=== PATIENT | female | born 1975 | race Caucasian/White ===

== ENCOUNTER 2017-05-19 11:27 | Observation (INO) | payer BC, OTHER ==
[2017-05-19 12:22] LABS: #Basophils 0.1 thou/uL (0.0-0.2); #Eosinphils 0.2 thou/uL (0.0-0.7); #Lymphocytes 2.2 thou/uL (1.20-3.40); #Monocytes 0.5 thou/uL (0.11-0.59); #Neutrophils 4.8 thou/uL (1.40-6.50); %Basophils 0.9 % (0.0-1.0); %Lymphocytes 28.1 % (21.0-51.0); %Monocytes 6.9 % (0.0-10.0); Mean Platelet Volume 9.3 fL (7.4-10.4); Red Blood Cell (RBC) Count 4.23 mill/uL (4.20-5.40); White Blood Cell (WBC) Count 7.8 thou/uL (4.8-10.8)
[2017-05-19 12:36] LABS: ALT (SGPT) 18 U/L (8-55); AST (SGOT) 21 U/L (5-34); Alkaline Phosphatase 60 U/L (40-150); Anion Gap 12 mmol/L (10-20); BUN (Urea Nitrogen) 16 mg/dL (7.0-18.7); Bilirubin, Total 1.1 mg/dL (0.2-1.2); CK (CPK) 77 U/L (29-168); Calc. Creatinine Clearance 0 mL/min (70-130); Calcium 10.3 mg/dL (7.8-10.44); Carbon Dioxide 24 mmol/L (22-29); Chloride 106 mmol/L (98-107); Estimated GFR-MDRD Greater than 90; Globulin 3.2 g/dL (2.4-3.5); Lipase 25 U/L (8-78); Protein, Total 7.6 g/dL (6.0-8.3)
[2017-05-19 12:37] LABS: Troponin I Less than 0.010 ng/mL (< 0.028)
--- NOTE | 2017-05-19 13:23 | RAD ---
RADIOGRAPH CHEST 1 VIEW: HISTORY: 41-year-old female with acute chest pain and dyspnea. FINDINGS: There are no air space densities, pulmonary edema, pneumothorax, or cardiomegaly. The lateral costo phrenic angles are sharp. IMPRESSION: No acute cardiopulmonary findings. norris [] POS: GABE
[2017-05-19 15:53] LABS: Troponin I Less than 0.010 ng/mL (< 0.028)
[2017-05-19 18:49] LABS: Troponin I 0.014 ng/mL (< 0.028)
[2017-05-19] MEDS ORDERED: Potassium Chloride 20 MEQ TAB PO SCH (19:00)
[2017-05-19] MEDS ORDERED: Ondansetron ODT 4 MG TAB PO PRN (19:34)
[2017-05-19] MEDS ORDERED: Ondansetron HCl/PF 4 MG/2 ML Vial IVP PRN (19:34)
[2017-05-19] MEDS ORDERED: Nitroglycerin 0.4 MG TAB (25 Tab Bottle) PO PRN (19:34)
[2017-05-19 19:37] VITALS: BMI 25.3
--- NOTE | 2017-05-19 20:04 | HP ---
DATE OF ADMISSION: 05/19/2017 PRIMARY CARE PHYSICIAN: Dr. Kapil Castro. CHIEF COMPLAINT: Chest discomfort. HISTORY OF PRESENT ILLNESS: The patient is a 41-year-old female with supraventricular tachycardia i n the past, presented to the hospital with chest discomfort. The chest discomfort started this morn ing when she was going to work. It lasted for 2-3 hours. It was substernal, radiating to her left arm. She felt lightheaded with some shortness of breath and nausea. She denies any palpitations, s yncope, heartburn or dyspepsia. No recent immobilization or travel reported. She denies any cough, shortness of breath or fever. In the emergency room, initial vital signs showed temperature 98.2, respirations 14, pulse of 57, bl ood pressure of 149/86 with O2 saturation of 97% on room air. Her initial EKG showed sinus bradycar gwendolyn without significant ST-T wave changes. She received aspirin in the emergency room. A chest x-r ay was negative for infiltrate or edema. PAST MEDICAL HISTORY: 1. Paroxysmal supraventricular tachycardia. The patient has seen Dr. Cisneros in the past. She a lso had an echocardiogram around 10-[address] Cisneros. No cardiac workup since then. 2. Hypertension. 3. Chronic hypokalemia. 4. Anxiety. 5. History of nephrolithiasis. 6. History of tobacco abuse. 7. Right thoracic outlet syndrome (due to extra rib). PAST SURGICAL HISTORY: 1. Soft palate repair. 2. Vaginal reconstruction from childbirth. 3. Cystoscopy with stent placement. ALLERGIES: The patient is allergic to PENICILLIN. CURRENT HOME MEDICATIONS: Losartan 100 mg daily. SOCIAL HISTORY: The patient is a former smoker, quit smoking earlier this year. Drinks alcohol rar catarino. She is and lives at home with her spouse. FAMILY HISTORY: Father with COPD. Mother with brain aneurysm and hypertension. REVIEW OF SYSTEMS: The following complete review of systems was negative, unless otherwise mentione d in the HPI or below: Constitutional: Weight loss or gain, ability to conduct usual activities. Skin: Rash, itching. Eyes: Double vision, pain. ENT/Mouth: Nose bleeding, neck stiffness, pain, tenderness. Cardiovascular: Palpitations, dyspnea on exertion, orthopnea. Respiratory: Shortness of breath, wheezing, cough, hemoptysis, fever or night sweats. Gastrointestinal: Poor appetite, abdominal pain, heartburn, nausea, vomiting, constipation, or diar ra. Genitourinary: Urgency, frequency, dysuria, nocturia. Musculoskeletal: Pain, swelling. Neurologic/Psychiatric: Anxiety, depression. Allergy/Immunologic: Skin rash, bleeding tendency. PHYSICAL EXAMINATION: VITAL SIGNS: As discussed above. GENERAL: A 41-year-old female, in no apparent distress. HEENT: Head is atraumatic, normocephalic. Sclerae are anicteric. Moist mucous membranes. No oral lesion. NECK: Supple, no JVD appreciated. No carotid bruit. LUNGS: Clear to auscultation bilaterally. No wheezing or rales. HEART: S1, S2 present, bradycardic. No rubs or gallops. S2 was loud. No murmurs appreciated. ABDOMEN: Soft, nontender, bowel sounds present. EXTREMITIES: No edema or calf tenderness. NEUROLOGIC: Grossly nonfocal, moves all four extremities. PSYCHIATRY: Alert, awake, oriented x3. SKIN: Warm and dry. LYMPH NODES: No palpable lymph nodes in the neck. PERIPHERAL VASCULAR: Radial pulses palpable bilaterally. MUSCULOSKELETAL: No joint swelling or tenderness. LABORATORY FINDINGS: 1. Potassium of 3.4. 2. Cardiac enzymes x3 have been negative. 3. BUN 16, creatinine 0.69. 4. EKG and chest x-ray by my review as discussed above. IMPRESSION: 1. Chest discomfort, rule out acute coronary syndrome. 2. Paroxysmal supraventricular tachycardia. The patient uses Valsalva maneuver. 3. Hypertension 4. Hypokalemia. 5. Anxiety. 6. Former smoker. 7. PENICILLIN allergy. 8. Asymptomatic cholelithiasis. PLAN: The patient will be monitored on the telemetry unit. Serial cardiac enzymes have been negati ve. We will resume losartan. We will keep her n.p.o. past midnight for stress test in a.m. We edvin l also get an echocardiogram as requested by her primary care physician. Base met in 1 week is meera mmended. Primary care physician advised to follow. Plan of care was discussed with the patient. She stated understanding.
[2017-05-19] MEDS: Acetaminophen 325 MG TAB PO PRN (20:24)
[2017-05-19] MEDS: Docusate 100 MG CAP PO SCH (20:24)
[2017-05-19] MEDS: Famotidine 20 MG TAB PO SCH (20:24)
[2017-05-20] MEDS: Acetaminophen 325 MG TAB PO PRN (13:10)
[2017-05-20] MEDS: Losartan Potassium 25 MG TAB PO SCH (13:14)
[2017-05-20] MEDS: Famotidine 20 MG TAB PO SCH (13:14)
[2017-05-20] MEDS: Aspirin 325 MG TAB PO SCH (13:14)
[2017-05-20] MEDS: Docusate 100 MG CAP PO SCH (13:14)
--- NOTE | 2017-05-20 15:19 | NM ---
NUCLEAR MEDICINE CARDIAC MYOCARDIAL PERFUSION SPECT EJECTION FRACTION STUDY WALL MOTION CINE: Date: 05/20/17 HISTORY: 41-year-old female with chest pain. TECHNIQUE: Number of days: 1 Rest study: Tc99m sestamibi (Cardiolite) dose: 11.0 mCi Exercise stress: treadmill. Stress study: Tc99m sestamibi (Cardiolite) dose: 29.0 mCi FINDINGS: CARDIAC (MYOCARDIAL PERFUSION) SPECT There is a subtle, small perfusion defect on the stress images, at the anteroseptal region, which is not present on the resting images. EJECTION FRACTION STUDY EF = 64% WALL MOTION CINE Normal wall motion and normal systolic wall thickening. IMPRESSION: Questionable small focus of reversible ischemia at the anteroseptal region. CODE T. JN R POS: [facility]
[2017-05-20] MEDS ORDERED: Communication Order-Pharmacy FS SCH (17:45)
[2017-05-20] MEDS ORDERED: Diazepam 5 MG TAB PO SCH (17:45)
--- NOTE | 2017-05-20 18:26 | PDOC.PN ---
- Subjective Encounter Start Date: 05/20/17 Encounter Start Time: 16:00 Patient seen and examined. No new complaints. No overnight events - Objective Resuscitation Status: Resuscitation Status FULL:Full Resuscitation MAR Reviewed: Yes Vital Signs & Weight: Vital Signs (12 hours) Temp Pulse Resp BP Pulse Ox 05/20/17 15:16 98.5 F 72 18 125/80 97 05/20/17 12:45 98.5 F 63 16 142/74 H 99 05/20/17 08:00 98.5 F 72 16 05/20/17 07:30 98.5 F 72 16 133/76 96 Weight Weight 147 lb 9.6 oz I&O: 05/19/17 05/20/17 05/21/17 06:59 06:59 06:59 Intake Total 300 Balance 300 Result Diagrams: 05/19/17 12:00 05/19/17 12:00 EKG Reviewed by me: Yes (Tele SR) Phys Exam - Physical Examination Constitutional: NAD Respiratory: no wheezing, no rhonchi Cardiovascular: RRR, no rub Gastrointestinal: soft, non-tender, positive bowel sounds Musculoskeletal: no edema Neurological: moves all 4 limbs Dx/Plan - Plan IMPRESSION: 1. Chest discomfort, rule out acute coronary syndrome. 2. Paroxysmal supraventricular tachycardia. The patient uses Valsalva maneuver. 3. Hypertension 4. Hypokalemia. 5. Anxiety. 6. Former smoker. 7. PENICILLIN allergy. 8. Asymptomatic cholelithiasis. PLAN * Consult Cardiology due to abnormal stress test * fasting lipid with Potassium in AM * Cont to monitor * Cont current meds as below Review of Systems - Review of Systems Respiratory: negative: Cough, Dry, Shortness of Breath, Hemoptysis, SOB with Excertion, Pleuritic Pain, Sputum, Wheezing Cardiovascular: negative: Chest Pain, Palpitations, Orthopnea, Paroxysmal Noc. Dyspnea, Edema, Light Headedness, Other - Medications/Allergies Allergies/Adverse Reactions: Allergies Allergy/AdvReac Type Severity Reaction Status Date / Time Penicillins Allergy Verified 05/19/17 19:38 Medications: Current Medications Acetaminophen (Tylenol) 650 mg PO Q4H PRN PRN Reason: Headache/Fever or Pain Last Admin: 05/20/17 13:10 Dose: 650 mg Aspirin (Aspirin) 325 mg PO DAILY BARRETT Last Admin: 05/20/17 13:14 Dose: 325 mg Diazepam (Valium) 5 mg PO [facility] Stop: 05/21/17 17:46 Losartan Potassium (Cozaar) 100 mg PO DAILY [facility] Last Admin: 05/20/17 13:14 Dose: 100 mg Miscellaneous Information (Communication Order-Pharmacy) 0 each FS [facility] Stop: 05/20/17 23:59 Nitroglycerin (Nitrostat) 0.4 mg PO Q5MIN PRN PRN Reason: Chest Pain Ondansetron HCl (Zofran Odt) 4 mg PO Q6H PRN PRN Reason: Nausea/Vomiting Ondansetron HCl (Zofran) 4 mg IVP Q6H PRN PRN Reason: Nausea/Vomiting
--- NOTE | 2017-05-21 00:56 | CON ---
DATE OF CONSULTATION: 05/20/2017 HISTORY OF PRESENT ILLNESS: The patient is a pleasant 41-year-old woman, who presents with left-sided chest discomfort. The patient has a previous history of SVT. The patient took a beta vale therapy for a while after being diagnosed with SVT. She now is off this medication. She reports having palpitations approximately once a month. The patient was in her usual state of health when she suddenly developed mid left-sided chest discomfort. This radiated into her left arm. This lasted for approximately 3 hours. The patient did not become diaphoretic. The patient also reports having some mild recurrent chest discomfort. The patient's cardiac risk factors include hypertension and a past history of tobacco abuse. PAST MEDICAL HISTORY: 1. Hypertension. 2. Supraventricular tachycardia. 3. Anxiety. 4. Nephrolithiasis. 5. Thoracic outlet syndrome. PAST SURGICAL HISTORY: Soft palate surgery, vaginal surgery, and a cystoscopy with ureteral stents. ALLERGIES: PENICILLIN. MEDICATION: Losartan 100 daily. SOCIAL HISTORY: Former smoker, smoked for about 1 pack per day. FAMILY HISTORY: No strong family history of heart disease. Mother had a brain aneurysm. REVIEW OF SYSTEMS: Ten-point system otherwise unremarkable. No history of easy bruising or bleeding, bright red blood per rectum. PHYSICAL EXAMINATION: GENERAL: Thin woman, in no acute distress. VITAL SIGNS: Blood pressure 142/74, heart rate 63. NECK: No jugular venous distention, no carotid bruits. LUNGS: Clear to auscultation. HEART: Regular rate and rhythm, normal S1and S2, no murmurs. ABDOMEN: Nondistended. EXTREMITIES: Showed no edema. SKIN: Warm and dry. NEUROLOGIC: Nonfocal. VASCULAR: Radial pulses 2+. LABORATORY RESULTS: Sodium 139, potassium 3.4, chloride 106, carbon dioxide 24 , BUN 16, creatinine 0.69, glucose was 89, troponin less than 0.01. White blood cell count 7.8, hemoglobin 12.7, hematocrit 37.0, platelets are 238. Her EKG revealed marked sinus bradycardia, otherwise normal ECG. Her stress test revealed her to have left ventricle ejection fraction 64%, possible reversible ischemia in the anteroseptal wall. IMPRESSION: 1. Chest pain. 2. History of supraventricular tachycardia. 3. Hypertension. 4. Anxiety. 5. History of tobacco abuse. 6. Abnormal stress test. This patient presents with chest pain and an abnormal stress test. I discussed the option of medical therapy versus an invasive evaluation for definitive diagnosis. The patient strongly prefers to undergo a cardiac catheterization to define whether she has significant coronary artery disease. The risks involved in cardiac catheterization including DC, bleeding, stroke, cardiac arrhythmia, and cardiac have been explained to the patient. The risks involved in stent placement and the risks of restenosis have been explained to the patient who wishes to proceed. PLAN: Proceed with cardiac catheterization. MARIFER
[2017-05-21 05:35] LABS: Cholesterol 159 mg/dl (< 200 Desired); LDL Cholesterol, Calculated 90 mg/dL
[2017-05-21] MEDS: Losartan Potassium 25 MG TAB PO SCH (05:59)
[2017-05-21] MEDS: Aspirin 325 MG TAB PO SCH (05:59)
[2017-05-21] MEDS ORDERED: Heparin 0 ML ONE (06:37)
[2017-05-21] MEDS ORDERED: Midazolam HCl 2 mg/2 ml Vial ONE (08:09)
[2017-05-21] MEDS ORDERED: Nitroglycerin 0.4 MG TAB (25 Tab Bottle) SL PRN (08:47)
[2017-05-21] MEDS ORDERED: traMADol HCl 50 MG TAB PO PRN (08:47)
[2017-05-21] MEDS ORDERED: Acetaminophen/Codeine 30-300mg Tablet PO PRN ×2 (08:47)
[2017-05-21] MEDS ORDERED: Sodium Chloride 0.9% 200 ML IV SCH (09:00)
[2017-05-21] MEDS ORDERED: Iopamidol 370 76% 100 ML VIAL ONE (12:00)
[2017-05-21 12:02] VITALS: BP 115/59; TEMP 98.4
--- NOTE | 2017-05-22 08:07 | DIS ---
DISCHARGE DISPOSITION: Home. FOLLOWUP: Follow up with primary care physician, Dr. Kapil Castro in 1 week. INPATIENT CONSULTANTS: Cardiology, Dr. Avery Nicholas. DISCHARGE MEDICATIONS: Losartan 100 mg daily. BRIEF HOSPITAL COURSE: The patient is a 41-year-old female with supraventricular tachycardia in the past, presented to the hospital with chest discomfort. Please refer to the history and physical da aspen 05/19/2017 for further details. The patient was admitted to the hospital with a diagnosis of chest discomfort, rule out acute hummel ry syndrome. Serial cardiac enzymes were normal. The patient underwent a stress test that showed q uestionable small focus of reversible ischemia at the anteroseptal region. An echocardiogram was pe rformed that showed normal left ventricular ejection fraction of 55-60% with mild mitral regurg and mild tricuspid regurgitation. Due to abnormal stress test a cardiac catheterization was performed alfonzo Nicholas that showed normal coronary anatomy. The patient has been cleared by Cardiology for discharge. FINAL DIAGNOSES: 1. Chest discomfort, acute coronary syndrome ruled out. 2. Negative cardiac catheterization. 3. Abnormal stress test. 4. History of paroxysmal supraventricular tachycardia. 5. Hypertension. 6. Hypokalemia, corrected. 7. Anxiety. 8. Former smoker. 9. Asymptomatic cholelithiasis. 10. Penicillin allergy. Plan of care was discussed with the patient. She stated understanding.
== END 2017-05-21 13:00 | disposition home or self-care (01) ==
LOC: SCSER 11:27 → 2SW 15:09
PROVIDERS: ADMIT Internal Medicine; ATTEND Internal Medicine
DX: R07.89 Other chest pain (principal); R94.39 Abnormal result of other cardiovascular function study; I10 Essential (primary) hypertension; E87.6 Hypokalemia; F41.9 Anxiety disorder, unspecified; K80.20 Calculus of gallbladder without cholecystitis without obstruction; Z88.0 Allergy status to penicillin; Z79.899 Other long term (current) drug therapy; Z98.890 Other specified postprocedural states; Z86.79 Personal history of other diseases of the circulatory system; Z87.891 Personal history of nicotine dependence; Z87.730 Personal history of (corrected) cleft lip and palate
CPT/HCPCS: 36415; 71010; 78452; 80053; 80061; 82550; 82553; 83690; 84132; 84484; 85025; 93005; 93017; 93306; 93458; 93798; 94760; 99152; A9500; C1769; G0378; J1644; J2250

== ENCOUNTER 2017-06-19 05:33 | Emergency (ER) | payer BC, OTHER ==
[2017-06-19] MEDS ORDERED: Ketorolac Tromethamine 30 MG/ML VIAL ONE (06:00)
[2017-06-19 06:02] LABS: #Basophils 0.1 thou/uL (0.0-0.2); #Eosinphils 0.3 thou/uL (0.0-0.7); #Monocytes 0.5 thou/uL (0.11-0.59); #Neutrophils 4.6 thou/uL (1.40-6.50); %Basophils 0.7 % (0.0-1.0); %Eosinophils 3.4 % (0.0-10.0); %Lymphocytes 26.7 % (21.0-51.0); %Monocytes 7.2 % (0.0-10.0); Mean Platelet Volume 8.7 fL (7.4-10.4); Red Blood Cell (RBC) Count 4.36 mill/uL (4.20-5.40); White Blood Cell (WBC) Count 7.4 thou/uL (4.8-10.8)
[2017-06-19 06:11] LABS: Bilirubin Negative (Negative); Blood, Urine Small (Negative); Glucose, Urine (Dipstick) Negative (Negative); Ketone, Urine Negative (Negative); Nitrite Negative (Negative); Protein, Urine (Dipstick) Negative (Neg-Trace); Urobilinogen 0.2 mg/dL (0.2-1.0)
[2017-06-19] MEDS ORDERED: Morphine 4 MG/ML Carpuject ONE (06:14)
[2017-06-19 06:17] LABS: Anion Gap 15 mmol/L (10-20); Calc. Creatinine Clearance 0 mL/min (70-130); Calcium 10.3 mg/dL (7.8-10.44); Carbon Dioxide 22 mmol/L (22-29); Chloride 108 mmol/L (98-107); Estimated GFR-MDRD 83
[2017-06-19 06:20] LABS: Bacteria/HPF None Seen HPF (None Seen); Hyaline Casts/LPF 0-3 HYALINE CAST LPF (0-3 Hyaline); RBC/HPF 0-3 HPF (0-3); Squamous Epithelial 0-3 HPF (0-3); WBC/HPF 0-3 HPF (0-3)
[2017-06-19 06:29] LABS: BUN (Urea Nitrogen) 24 mg/dL (7.0-18.7)
[2017-06-19] MEDS ORDERED: HYDROcodone/Acetaminophen 10/325 mg Tablet ONE (06:39)
--- NOTE | 2017-06-19 08:16 | CT ---
PRELIMINARY REPORT/[facility]/EMERGENCY AFTER HOURS PROCEDURE: EXAM: CT Abdomen and Pelvis Without Intravenous Contrast EXAM DATE/TIME: 06/19/2017 6:06 AM CLINICAL HISTORY: 41 years old, female; Pain; Abdominal pain; Patient HX: Pt reports lt sided flank pain. History of kidney stones TECHNIQUE: Axial computed tomography images of the abdomen and pelvis without intravenous contrast. Coronal reformatted images were created and reviewed. COMPARISON: No relevant prior studies available. FINDINGS: Lower thorax: No acute findings. ABDOMEN: Liver: Unremarkable. Gallbladder and bile ducts: Unremarkable. No calcified stones. No ductal dilation. Pancreas: Unremarkable. No ductal dilation. Spleen: Unremarkable. No splenomegaly. Adrenals: Unremarkable. No mass. Kidneys and ureters: There are numerous renal medullary densities suggestive of renal tubular ectasia /medullary sponge kidney. Mild to moderate left perinephric stranding and hydronephrosis secondary to a 5 x 5.5 mm calculus located in the left ureter at the level of S2. Stomach and bowel: Unremarkable. No obstruction. No mucosal thickening. Appendix: No findings to suggest acute appendicitis. PELVIS: Bladder: Unremarkable. No stones. Reproductive: Unremarkable as visualized. ABDOMEN and PELVIS: Intraperitoneal space: Unremarkable. No free air. No significant fluid collection. Bones/joints: No acute fracture. No dislocation. Soft tissues: Unremarkable. Vasculature: Unremarkable. No abdominal aortic aneurysm. Lymph nodes: Unremarkable. No enlarged lymph nodes. IMPRESSION: There are numerous renal medullary densities suggestive of renal tubular ectasia/medullary sponge kid cody. Mild to moderate left perinephric stranding and hydronephrosis secondary to a 5 x 5.5 mm calculus located in the left ureter at the level of S2. Thank you for allowing us to participate in the care of your patient. Dictated and Authenticated by: Rafaela Pena MD 06/19/2017 6:16 AM Central Time ([place] & [place]) FINAL REPORT CT ABDOMEN AND PELVIS WITHOUT CONTRAST: DATE: 06/19/17. COMPARISON: 11/27/16. HISTORY: Left-sided flank pain, evaluate for nephrolithiasis/obstructive uropathy. FINDINGS: I agree with the preliminary [facility] report. A lack of contrast media limits assessment of the viscera , bowel vascular structures, and for lymphadenopathy. Imaged lung bases unremarkable. No free intraperitoneal air. Liver, gallbladder, spleen, pancreas, adrenal glands, and kidneys noted. Extensive medullary nephrocalcinosis noted bilaterally. No evide nce for obstructive uropathy on the right. There is left-sided hydronephrosis and hydroureter second mic to an obstructing stone at the axial level of the lower sacrum, measuring in the 5-6 mm range on axial imaging and measuring up to 7-8 mm in craniocaudal dimension. No evidence for bowel inflammatory change or obstruction. The osseous structures demonstrate degener ative change of bilateral sacroiliac joints. There is scoliotic curvature of the thoracolumbar spine . IMPRESSION: Bilateral medullary nephrocalcinosis. Obstructive uropathy on the left secondary to a stone within t he mid/distal left ureter which measures in the 5-6 mm range on axial imaging and up to 8 mm in crani ocaudal dimension. POS: [facility]E
== END 2017-06-19 07:04 | disposition home or self-care (01) ==
LOC: SCSER 05:33
DX: N13.2 Hydronephrosis with renal and ureteral calculous obstruction (principal); I10 Essential (primary) hypertension; F41.9 Anxiety disorder, unspecified; F32.9 Major depressive disorder, single episode, unspecified; F17.210 Nicotine dependence, cigarettes, uncomplicated; Z79.899 Other long term (current) drug therapy
CPT/HCPCS: 74176; 80048; 81003; 81015; 81025; 85025; 87077; 87086; 96361; 96374; 96375; J1885; J2270

== ENCOUNTER 2017-06-23 06:46 | Day surgery (SDC) | payer BC ==
[2017-06-20 12:51] VITALS: BMI 24.0
[2017-06-23] MEDS ORDERED: Iothalamate Meglumine 60% 50 ML VIAL FS ONE (07:10)
[2017-06-23] MEDS ORDERED: Levofloxacin 500 mg/D5W 100 ml Premix Bag ONE (07:26)
--- NOTE | 2017-06-23 07:44 | RAD ---
ABDOMEN 1 VIEW: HISTORY: Ureteral stone. Medullary calcinosis. FINDINGS: Visualized bowel gas pattern is nonspecific. Medullary calcifications of the kidneys are again demon strated. The oval left ureteral calculus has descended to the left lower pelvis. It is at the expected locati on of the left ureterovesicular junction, possibly within the bladder or possibly infected at the UVJ . Other findings are stable. POS: [facility]
[2017-06-23] MEDS ORDERED: Fentanyl 250 MCG/5 ML VIAL ONE (09:39)
[2017-06-23] MEDS ORDERED: Propofol 200 MG/20 ML VIAL ONE (09:56)
[2017-06-23] MEDS ORDERED: ePHEDrine/0.9% NaCl/PF SYRINGE 50 mg/10 ml ONE (09:56)
[2017-06-23] MEDS ORDERED: Lidocaine 2% PF 10 ML AMP (For Epidural Use) ONE (09:56)
[2017-06-23] MEDS ORDERED: Ondansetron HCl/PF 4 MG/2 ML Vial ONE (09:56)
[2017-06-23] MEDS ORDERED: Glycopyrrolate 0.2 MG/ML 5 ML SYRINGE ONE (09:56)
[2017-06-23] MEDS ORDERED: Dexamethasone 20 MG/5 ML VIAL ONE (09:56)
[2017-06-23] MEDS ORDERED: Oxybutynin 5 MG TAB ONE (11:13)
[2017-06-23] MEDS ORDERED: Phenazopyridine HCl 97.5 MG TABLET ONE (11:14)
[2017-06-23] MEDS ORDERED: HYDROcodone/Acetaminophen 5/325 mg Tablet ONE (11:56)
--- NOTE | 2017-06-23 12:19 | OP ---
DATE OF PROCEDURE: 06/23/2017 PREOPERATIVE DIAGNOSES: 1. A 41-year-old female with history of bilateral nephrocalcinosis, recurrent urolithiasis. 2. History of left 8 mm mid ureteral calculi with hydronephrosis. POSTOPERATIVE DIAGNOSES: 1. A 41-year-old female with history of bilateral nephrocalcinosis, recurrent urolithiasis. 2. History of left 8 mm mid ureteral calculi with hydronephrosis. PROCEDURES PERFORMED: Cystoscopy, bilateral retrograde pyelogram, left ureteroscopy, laser lithotrip sy, basket extraction of distally migrated ureteral stone to the level of UVJ, 6 x 24 double-J ureter al stent placement with dangler taped to the patient's pubic symphysis, laser lithotripsy. SURGEON: Zoie Spencer D.O. ANESTHESIA: General. COMPLICATIONS: None apparent. SPECIMEN: Stone fragments for chemical analysis. INDICATIONS FOR THE PROCEDURE AND HISTORY: Ms. Orellana is a 41-year-old female with histor y of recurrent urolithiasis. The patient has bilateral medullary nephrocalcinosis with recurrent kid cody stone. The patient has been referred to Nephrology with no metabolic abnormality consistent with renal tubular acidosis, she presented to my office as a working up. She had acute onset of left fla nk pain due to a large 8 mm mid ureteral calculi at the level of the ureter with bilateral nephrocalc inosis. There was a small punctate left renal pelvic stone nidus approximately 2-3 mm nonobstructing in nature, she presents today for ureteroscopy, laser lithotripsy. This morning, she states that sh e had vague right lower back pain as well, with lower abdominal pressure. KUB demonstrates stone at the level of ureterovesical junction. Given that she also has right lower back pain, bilateral retro grade pyelogram was advised and she desired to proceed. DESCRIPTION OF THE PROCEDURE: After an informed consent is signed, the patient is taken to the opera tin room, placed in a dorsal lithotomy position with the genital area prepped and draped in the [facility] surgical sterile fashion. A 21-Luxembourgish cystoscope was utilized. Bilateral KAI hose, SCDs, and broa d-spectrum antibiotics were provided. Upon entering the scope, we saw the stone at the level of the UPJ and obstructing. The right UO was without evidence of obstructing stone. I did perform a right retrograde pyelogram with 1:1 diluted contrast due to vague right lower back pain, which demonstrated no evidence of filling defect, hydronephrosis. Prompt excretion of contrast was noted. Then, we pa id attention to the large renal stone abutting the left UO. The stone was partially extruding out of the UO. As I was unable to pass this wire as the stone was engaging into the left UO, we laser lith otripsied with a rigid ureteroscope using 365 micron laser fiber. The stone was lasered, flushed to keep harm's out of way for the ureteral mucosa. Once this stone was fragmented somewhat, I was able to move the stone more mobile within the ureteral orifice and a 0.35 sensor wire was able to be passe d to the level of the left upper pole with ease. With the wire secured in the left upper pole collec ting system, we then re-passed the rigid ureteroscope. The stone migrated a little bit into the intr amural ureter. With the laser lithotripsy, the stone was performed complete. The stone fragments we re extracted with basket extraction and sent for chemical analysis. Those that were remained in the bladder, which she will void without difficulty. I did pass the rigid ureteroscope into the mid uret er. There was no other stone nidus. The ureter was dilated due to an obstructing UVJ stone. With t his stone completely treated, we passed a 6 x 24 double-J ureteral stent. As there is endoscopic linnea arance of the large UVJ stone while stent was still connected to the dangler and was taped to the pat iealhaji's pubic symphysis. She will come to my office next Friday for stent pull on dangler. She is di scharged with [place] 5/325, ciprofloxacin for 3 days, Colace, azo, VESIcare 5 mg one p.o. daily. As s he has tendency for significant bladder spasms, I did provide Levsin sublingual adjunct one to two p. o. q.6 hours p.r.n. for severe bladder spasms.
--- NOTE | 2017-06-23 14:31 | RAD ---
RETROGRADE UROGRAM: Comparison: Abdominal radiograph, 06-23-17; CT abdomen/pelvis 06-19-17. FINDINGS: Initial images demonstrate evidence of a retrograde right urogram with prominent motion artifact pres ent. No hydronephrosis is identified. Images on the left demonstrate visualization of a left ureteral stent overlying the left hemipelvis. The proximal portion of the ureteral stent is not visualized on this exam. IMPRESSION: 1. No hydronephrosis or hydroureter present on the right. The limitedly visualized right ureter does appear normal in caliber without evidence of a filling defect. 2. A single image is obtained on the left which demonstrates the distal portion of the left ureteral stent. 3. Correlation with intraoperative findings is recommended. POS: [facility]
== END 2017-06-23 12:20 | disposition home or self-care (01) ==
LOC: SDC 06:46
PROVIDERS: ATTEND Urology
PROC: 0T778DZ Dilation of Left Ureter with Intraluminal Device, Via Natural or Artificial Opening Endoscopic (ICD-10-PCS; principal; 2017-06-23)
PROC: 0TF78ZZ Fragmentation in Left Ureter, Via Natural or Artificial Opening Endoscopic (ICD-10-PCS; principal; 2017-06-23)
DX: N13.2 Hydronephrosis with renal and ureteral calculous obstruction (principal); E83.59 Other disorders of calcium metabolism; I47.1 Supraventricular tachycardia; I10 Essential (primary) hypertension; E87.6 Hypokalemia; F41.9 Anxiety disorder, unspecified; G54.0 Brachial plexus disorders; Z79.2 Long term (current) use of antibiotics; Z79.899 Other long term (current) drug therapy; Z88.0 Allergy status to penicillin; Z98.890 Other specified postprocedural states; Z87.891 Personal history of nicotine dependence; Z87.442 Personal history of urinary calculi
CPT/HCPCS: 74000; 74420; 82365; 88300; C1758; C1769; J1100; J1956; J2001; J2405; J2704; J3010; Q9961

== ENCOUNTER 2018-08-20 12:14 | Outpatient (CLI) | payer BC ==
--- NOTE | 2018-08-20 14:03 | RAD ---
FOUR VIEWS LUMBAR SPINE: Date: 08-20-18 Provided Clinical History: Spondylolisthesis. FINDINGS: There is 32 degrees of left convexity scoliosis of the lower thoracic and upper lumbar spine centered about L2-3. Sagittal lumbar alignment appears normal. There is no evidence for abnormal translationa l motion with flexion and extension. Vertebral body heights appear preserved. Disc space narrowing at L3-4 is demonstrated. Pedicles appear intact. IMPRESSION: Thoracolumbar scoliosis as above. POS: [facility]
== END 2018-08-20 12:15 | disposition home or self-care (01) ==
LOC: BICRAD 12:14
PROVIDERS: ATTEND Anesthesiology Pain Medicine
DX: G95.11 Acute infarction of spinal cord (embolic) (nonembolic) (principal); M41.85 Other forms of scoliosis, thoracolumbar region
CPT/HCPCS: 72120

== ENCOUNTER 2019-02-17 13:33 | Outpatient (CLI) | payer BC ==
--- NOTE | 2019-02-17 14:11 | MMO ---
Bilateral MAMMO Bilat Screen [facility]DI[facility]MAG. CLINICAL HISTORY: Patient is 43 years old and is seen for screening. The patient has the following family history of breast cancer: 2 great aunts. The patient has no personal history of cancer. VIEWS: The views performed were: bilateral craniocaudal with tomosynthesis and bilateral mediolateral oblique with tomosynthesis. MAMMOGRAM FINDINGS: The breasts are heterogeneously dense, which could obscure a lesion on mammography. There are benign appearing calcifications seen in both breasts. There are no suspicious masses, suspicious calcifications, or new areas of architectural distortion. IMPRESSION: THERE IS NO MAMMOGRAPHIC EVIDENCE OF MALIGNANCY. A ROUTINE FOLLOW-UP MAMMOGRAM IN 1 YEAR IS RECOMMENDED. THE RESULTS OF THIS EXAM WERE SENT TO THE PATIENT. ACR BI-RADS Category 2 - Benign finding MAMMOGRAPHY NOTE: 1. A negative mammogram report should not delay a biopsy if a dominant of clinically suspicious mass is present. 2. Approximately 10% to 15% of breast cancers are not detected by mammography. 3. Adenosis and dense breasts may obscure an underlying neoplasm. Reported by: RIGO RODRIGUEZ MD Electonically Signed: [id number]
== END 2019-02-17 13:34 | disposition home or self-care (01) ==
LOC: BICMAMMO 13:33
PROVIDERS: ATTEND Obstetrics & Gynecology
DX: Z12.31 Encounter for screening mammogram for malignant neoplasm of breast (principal); Z80.3 Family history of malignant neoplasm of breast
CPT/HCPCS: 77063; 77067

== ENCOUNTER 2019-03-08 10:46 | Day surgery (SDC) | payer BC ==
[2019-03-02 16:58] VITALS: BMI 28.6
[2019-03-08] MEDS ORDERED: PROPOFOL 200 MG/20 ML VIAL ONE (12:12)
[2019-03-08] MEDS ORDERED: Ondansetron PF 4 MG/2 ML Vial ONE ×2 (12:12→14:02)
[2019-03-08] MEDS ORDERED: Lidocaine 1% PF 5 ML VIAL ONE (12:12)
[2019-03-08] MEDS ORDERED: Levofloxacin 500 mg/D5W 100 ml Premix Bag ONE (13:24)
[2019-03-08] MEDS ORDERED: Lidocaine 2% PF 5 ML VIAL ONE ×2 (13:43→13:44)
[2019-03-08] MEDS ORDERED: Bupivacaine HCl 0.5%/Epinephrine 1:200,000/PF 30 ml Vial ONE (13:43)
[2019-03-08] MEDS ORDERED: Fentanyl 100 MCG/2 ML VIAL ONE ×3 (13:47→15:43)
[2019-03-08] MEDS ORDERED: Midazolam HCl 2 mg/2 ml Vial ONE (13:47)
[2019-03-08] MEDS ORDERED: Famotidine/PF 20 mg/2ml Vial ONE (14:01)
[2019-03-08] MEDS ORDERED: Scopolamine 1.5 mg/72 hour Patch ONE (14:02)
[2019-03-08] MEDS ORDERED: HYDROcodone/Acetaminophen 5/325 mg Tablet ONE (16:34)
--- NOTE | 2019-03-09 10:16 | OP ---
DATE OF PROCEDURE: 03/08/2019 PREOPERATIVE DIAGNOSIS: Soft tissue mass, left lateral axilla. POSTOPERATIVE DIAGNOSIS: Soft tissue mass, left lateral axilla. PROCEDURE PERFORMED: Excision of soft tissue mass, left axilla. ANESTHESIA: General. ESTIMATED BLOOD LOSS: None. COMPLICATIONS: None. SPECIMEN: Left axillary mass. DESCRIPTION OF PROCEDURE: The patient was taken to the operating room and laid supine on the operating room table. After general anesthetic was obtained, the lateral chest, breast, arm, axilla were all prepped and draped in a sterile fashion. Transverse incision was made over the palpable abnormality. This dissected free from surrounding structures, sent to Path for final diagnosis. The wound was irrigated. Local anesthetic was applied. The wound was closed using 3-0 Vicryl, 4-0 Monocryl, and Dermabond. The patient was sent to Recovery in stable condition. All instrument counts, needle counts, and lap counts were correct. Job ID: [id number]
--- NOTE | 2019-03-09 18:50 | EKG ---
Test Reason : PREOP Blood Pressure : / mmHG Vent. Rate : 071 BPM Atrial Rate : 071 BPM P-R Int : 176 ms QRS Dur : 084 ms QT Int : 444 ms P-R-T Axes : 023 048 026 degrees QTc Int : 482 ms Normal sinus rhythm ST abnormality, possible digitalis effect Prolonged QT Abnormal ECG When compared with ECG of 19-MAY-2017 11:34, (Unconfirmed) QT has lengthened Confirmed by LOLLY NULL, SVioletta ([id number]) on 03/09/2019 6:50:16 PM Referred By: MARK Confirmed By:DR. Brittany AMBROCIO MD
--- NOTE | 2019-03-31 08:33 | PQF ---
[facility] POST DISCHARGE CLINICAL DOCUMENTATION IMPROVEMENT CLARIFICATION FORM l Todays Date: 03/31/19 l Patients Name AKIL DONAHUE l l Admit Date 03/08/19 l Disch Date 03/08/19 Electric Welder Name Jaclyn Cruz Email: [email or web address]: [phone] To be completed by Electric Welder: Present Clinical Indicators - Signs / Symptoms Results and Location in Medical Record [ ] Documentation of: [ ] [ ] Documentation of: [ ] [ ] Documentation of: [ ] [ ] Documentation of: [ ] [ ] Risks [ ] [ ] [ ] Treatment [ ] Need to verify margin size of soft tissue mass excised No size found in the Operative Report area. [ ] [ ] To be completed by Physician: SHO HO The documentation in this patients record requires clarification to ensure coding compliance and accuracy. Check the appropriate box and include in your discharge summary. [ x] 3 cm mass, no defined margins since its benign [ ] [ ] [ ] Please check this box if this does not apply to this patient [ ] Unable to determine [ ] Other diagnosis: Review the following information and exercise your independent professional judgment in responding to the clarification. Based upon the clinical findings, risk factors, and treatment, please clarify if you are treating one of the above probable or suspected diagnoses. Physician Signature: Date Time MTDD
== END 2019-03-08 16:50 | disposition home or self-care (01) ==
LOC: SDC 10:46
PROVIDERS: ATTEND Surgery
PROC: 0JBF0ZZ Excision of Left Upper Arm Subcutaneous Tissue and Fascia, Open Approach (ICD-10-PCS; principal; 2019-03-08)
DX: M79.9 Soft tissue disorder, unspecified (principal); E87.6 Hypokalemia; I47.1 Supraventricular tachycardia; I10 Essential (primary) hypertension; F41.9 Anxiety disorder, unspecified; Z87.891 Personal history of nicotine dependence; Z79.899 Other long term (current) drug therapy; Z88.0 Allergy status to penicillin
CPT/HCPCS: 36415; 80053; 88304; 93005; 93010; J0131; J0670; J1956; J2001; J2250; J2405; J2704; J3010; S0028

== ENCOUNTER 2019-06-01 10:52 | Outpatient (CLI) | payer BC ==
--- NOTE | 2019-06-01 11:20 | RAD ---
XR Abdomen 1 View/KUB 2 view abdomen series CLINICAL INDICATION: Medullary sponge disease FINDINGS: There are multiple calcific densities overlying each renal shadow compatible with medullary nephrocal cinosis. Bowel gas pattern is unremarkable. No acute osseous pathology. IMPRESSION: Bilateral medullary nephrocalcinosis.
== END 2019-06-01 10:53 | disposition home or self-care (01) ==
LOC: RAD 10:52
PROVIDERS: ATTEND Urology
DX: Q61.5 Medullary cystic kidney (principal); E83.59 Other disorders of calcium metabolism; N29 Other disorders of kidney and ureter in diseases classified elsewhere
CPT/HCPCS: 74018

== ENCOUNTER 2019-06-01 12:57 | Outpatient (CLI) | payer BC ==
--- NOTE | 2019-06-01 13:32 | CT ---
Exam: Abdomen CT without contrast Pelvic CT without contrast HISTORY: Ureteral calculi. Right flank pain. History of renal stones. COMPARISON: 06/19/17. FINDINGS: Abdomen CT: Lung bases:Clear Heart size: Normal heart size. No significant pericardial effusion Aorta: Visualized aorta has a normal caliber. No periaortic fat stranding Solid organs: Limited evaluation by the lack of IV contrast. Grossly no solid organ abnormality Lymph nodes: No gastrohepatic, retrocrural or periportal lymphadenopathy Gallbladder: Unremarkable Mesentery: No mass, lymphadenopathy, free air or free fluid Kidneys: Stable calcification in the midpole the right intrarenal collecting system measuring 0.6 x 0 .5 cm. Additional calcifications within the pelvis as well as the pyramids is noted bilaterally. The overall degree of calcification has not changed. Bilaterally no hydronephrosis or perinephric fat stranding. Bilateral ureters have a normal caliber. No hydroureter, periureteral fat stranding, or ureterolithiasis. Alimentary canal: Limited evaluation by the lack of oral contrast. No evidence of small bowel obstruc tion. Unremarkable, decompressed colon. CT PELVIS: No mass, adenopathy, free air or free fluid. Uterus and adnexal structures are unremarkable Urinary bladder: No masses or calcifications. No mucosal thickening. Osseous structures: No lytic or blastic lesions IMPRESSION: Stable bilateral medullary nephrocalcinosis. Redemonstration of bilateral intrarenal nonobstructing c alculi. Bilaterally no evidence of obstructive uropathy. Transcribed Date/Time: 06/01/2019 1:38 PM
== END 2019-06-01 12:58 | disposition home or self-care (01) ==
LOC: CT 12:57
PROVIDERS: ATTEND Urology
DX: N20.2 Calculus of kidney with calculus of ureter (principal)
CPT/HCPCS: 74176; 81001; 87086